=== PATIENT | female | born 1960 | race Caucasian/White ===

== ENCOUNTER 2018-04-14 17:00 | Emergency (ER) | payer OTHER ==
[~2018-04-14] VITALS: Ht 165.1 cm; Wt 83.0 kg
[2018-04-14 17:02] VITALS: BP 121/66
[2018-04-14] MEDS ORDERED: DIPH,PERTUSS(ACELL),TET VAC/PF 0.5 ML IM-VACC ONE ×2 (20:17→20:30)
== END 2018-04-14 20:38 | disposition home or self-care (01) ==
LOC: ED 20:32
DX: S00.83XA Contusion of other part of head, initial encounter (principal); W19.XXXA Unspecified fall, initial encounter; Y93.89 Activity, other specified; Y92.89 Other specified places as the place of occurrence of the external cause; Y99.8 Other external cause status
CPT/HCPCS: 70450; 70486; 72125; 90471; 90715

== ENCOUNTER 2019-04-20 14:54 | Emergency (ER) | payer OTHER ==
[~2019-04-20] VITALS: Ht 165.1 cm; Wt 69.2 kg
[2019-04-20] MEDS ORDERED: methylPREDNISolone SOD SUCC 125 MG/2 ML ONE (15:29)
[2019-04-20] MEDS ORDERED: SODIUM CHLORIDE 0.9% 1,000ML IVBOLUS ONE (15:30)
[2019-04-20] MEDS ORDERED: ALBUTEROL/IPRATROPIUM 2.5MG/0.5MG, 3 ML NPPB ONE (15:30)
[2019-04-20] MEDS ORDERED: methylPREDNISolone SOD SUCC 125 MG/2 ML IVP ONE (15:30)
[2019-04-20] MEDS ORDERED: ALBUTEROL/IPRATROPIUM 2.5MG/0.5MG, 3 ML ONE (15:41)
[2019-04-20 15:48] LABS: ALANINE AMINOTRANSFERASE 22 U/L (12-78); ALBUMIN 3.2 g/dL (3.4-5.0); ANION GAP 7 mmol/L (5-15); CALCIUM 8.8 mg/dL (8.5-10.1); CHLORIDE 108 mmol/L (98-107); CREATININE 0.69 mg/dL (0.55-1.02)
[2019-04-20 15:52] LABS: ALKALINE PHOSPHATASE 116 U/L (45-117); BILIRUBIN,TOTAL 0.3 mg/dL (0.2-1.0); TOTAL PROTEIN 7.1 g/dL (6.4-8.2); TROPONIN I 0.022 ng/mL (0.000-0.045)
[2019-04-20 16:26] LABS: INTERNATIONAL NORMALIZED RATIO 1.01 (0.93-1.1); PROTHROMBIN TIME 10.6 Seconds (9.6-11.5)
[2019-04-20 16:32] LABS: MEAN CORPUSCULAR HEMOGLOBIN 27.9 pg (27.0-34.8); MEAN CORPUSCULAR HGB CONC 32.6 g/dL (32.4-35.8); MEAN CORPUSCULAR VOLUME 85.6 fL (80-100); MEAN PLATELET VOLUME 7.5 fL (7.4-10.4); PLATELET COUNT 381 x10^3/uL (130-400); RED CELL DISTRIBUTION WIDTH 15.2 % (9.6-15.2)
[2019-04-20 16:33] LABS: MD YES
[2019-04-20 16:38] LABS: BASOS% (MANUAL) 1 % (0-1); EOS% (MANUAL) 1 % (1-7); LYMPH#(MANUAL) 2.16 x10^3/uL (1-3.4); LYMPHS% (MANUAL) 21 % (22-44); MONOS#(MANUAL) 0.93 x10^3/uL (0.3-2.7); MONOS% (MANUAL) 9 % (2-9); REACTIVE LYMPHS # (MANUAL) 0.93 x10^3/uL (0-0); REACTIVE LYMPHS % (MANUAL) 9 % (0-0); SEG#(MANUAL) 6.08 x10^3/uL (1.8-6.8); SEGS% (MANUAL) 59 % (42-75)
[2019-04-20 16:41] LABS: <PLATELET ESTIMATE> ADEQUATE; <PLT MORPHOLOGY> NORMAL PLT MORPH
[2019-04-20] MEDS ORDERED: OMNIPAQUE 350 MG/ML, 100ML BOTTLE ONE (17:31)
[2019-04-20 18:11] VITALS: BP 115/76
== END 2019-04-20 18:25 | disposition home or self-care (01) ==
LOC: ED 17:02
DX: J44.1 Chronic obstructive pulmonary disease with (acute) exacerbation (principal); M79.18 Myalgia, other site; I25.2 Old myocardial infarction; F17.210 Nicotine dependence, cigarettes, uncomplicated; R50.9 Fever, unspecified
CPT/HCPCS: 36415; 71045; 71275; 80053; 83605; 83880; 84145; 84484; 85025; 85379; 85610; 87040; 93005; 94640; 96374; 99284; 99406; J2930; J7030; J7620; Q9967

== ENCOUNTER 2019-12-01 15:04 | Emergency (ER) | payer OTHER ==
[~2019-12-01] VITALS: Ht 167.6 cm; Wt 76.4 kg
[2019-12-01] MEDS ORDERED: SODIUM CHLORIDE FLUSH 10ML SYR IVF ONE (15:30)
[2019-12-01] MEDS ORDERED: HYDROmorphone 1 MG/ML, 1ML INJ ONE ×2 (15:35→15:56)
[2019-12-01] MEDS: HYDROmorphone 1 MG/ML, 1ML INJ IVPush PRN ×2 (15:38→15:59)
[2019-12-01] MEDS ORDERED: L.E.T SOLUTION TP ONE ×2 (16:04→16:30)
[2019-12-01] MEDS ORDERED: PROPOFOL 10 MG/ML, 20ML ONE (16:31)
[2019-12-01] MEDS ORDERED: PROPOFOL 10 MG/ML, 20ML IVPush ONE (17:00)
--- NOTE | 2019-12-01 17:24 | NUR ---
pt refused c-collar
--- NOTE | 2019-12-01 17:57 | NUR ---
TASK RN: PT TO IMAGING. PT A&O X 4. NADN. SIGNIFICANT OTHER BEDSIDE. VSS
--- NOTE | 2019-12-01 18:05 | NUR ---
TASK RN: PT BACK FROM CT.
--- NOTE | 2019-12-01 18:18 | NUR ---
TASK RN: PT RESTING ON RNUNAM IQUA. SIGNIFICANT OTHER BEDSIDE. VSS. NO NEEDS REQUESTED AT THIS TIME.
[2019-12-01 19:02] VITALS: BP 133/73
[2019-12-01] MEDS ORDERED: OXYcodone/APAP 5/325MG TABLET ONE (19:05)
--- NOTE | 2019-12-01 19:11 | NUR ---
REPORT FROM RONALD ROBLERO. PT TO BE DC.
[2019-12-01] MEDS ORDERED: OXYcodone/APAP 5/325MG TABLET PO ONE (19:30)
[2019-12-05] MEDS ORDERED: IBUP200T49 PO (12:26)
[2019-12-05] MEDS ORDERED: OXYC-302 PO (12:26)
== END 2019-12-01 19:20 | disposition home or self-care (01) ==
LOC: ED 16:57
DX: S52.572A Other intraarticular fracture of lower end of left radius, initial encounter for closed fracture (principal); S52.615A Nondisplaced fracture of left ulna styloid process, initial encounter for closed fracture; S62.303A Unspecified fracture of third metacarpal bone, left hand, initial encounter for closed fracture; I25.2 Old myocardial infarction; J44.9 Chronic obstructive pulmonary disease, unspecified; W19.XXXA Unspecified fall, initial encounter; Y93.89 Activity, other specified; Y92.008 Other place in unspecified non-institutional (private) residence as the place of occurrence of the external cause; Y99.8 Other external cause status
CPT/HCPCS: 25605; 70450; 72125; 73090; 73100; 73110; 96374; 99152; 99285; J1170